=== PATIENT | male | born 1960 | race Caucasian/White ===

== ENCOUNTER → 2019-07-09 | Outpatient (CLI) | payer BC ==
--- NOTE | 2019-07-10 10:28 | US ---
EXAM DESCRIPTION: Soft Tissue,Abdomen: ULTRASOUND. CLINICAL HISTORY: Benign lipomatous neoplasm of other sites. Palpable left anterior abdominal mass. COMPARISON: None. TECHNIQUE: Transabdominal scanning: batres-scale mode. Doppler mode. FINDINGS: Heterogeneous hypoechoic and hyperechoic mass with thin echogenic margins in the left anterior abdomen inferior to the inferior anterior ribs. Largest mass measures 4.4 x 3.3 x 1.8 cm, wider than tall orientation, posterior acoustic enhancement, and no cystic component.. 2.2 x 2.0 x 1.0 cm, wider than tall orientation and posterior acoustic enhancement, and no cystic component. Third mass measures 5.0 x 1.0 x 2.7 cm, wider than tall orientation, circumscribed, posterior acoustic enhancement and no cystic component. Fourth mass is primarily hyperechoic measuring less than 1 mL. These masses are nonvascular. IMPRESSION: Multiple lipomatous masses in the anterior left abdomen are most likely benign. Wider than tall orientation, posterior acoustic enhancement, and nonvascular. No cystic component. No large calcifications. Consider follow-up evaluation if masses enlarge or become painful/tender. Electronically signed by: Dar Cohen MD 07/10/2019 10:26 AM [facility]
== END ==
LOC: US 09:22
PROVIDERS: ATTEND Family Medicine
DX: D17.79 Benign lipomatous neoplasm of other sites (principal)

== ENCOUNTER → 2019-09-01 | Outpatient (CLI) | payer BC | LOC: ECHO 09:53 | PROVIDERS: ATTEND Internal Medicine Gastroenterology | DX: R06.00 Dyspnea, unspecified (principal) ==